=== PATIENT | female | born 2000 | race Caucasian/White ===

== ENCOUNTER 2023-12-08 13:37 | Emergency (ER) | payer OTHER, SELFPAY ==
[2023-12-08 13:37] VITALS: BP 132/91; PULSE 98; RESP 16; TEMP 36.8; O2SAT 99
[2023-12-08 14:24] LABS: Basophils Absolute Auto 0.02 K/mm3 (0.00-0.10); Basophils Percent Auto 0.2 % (0.0-1.0); Eosinophils Absolute Auto 0.02 K/mm3 (0.02-0.50); Eosinophils Percent Auto 0.2 % (1.0-6.0); Hematocrit 41.7 % (35.0-49.0); Hemoglobin 13.8 g/dL (12.0-15.0); Immature Granulocyte Absolute 0.03 K/mm3 (0.00-0.00); Immature Granulocyte Percent A 0.4 % (0.0-0.0); Lymphocytes Absolute Auto 2.22 K/mm3 (1.10-4.50); Lymphocytes Percent Auto 26.2 % (18.0-42.0); Mean Corpuscular HGB Conc 33.1 g/dL (32-36); Mean Corpuscular Hemoglobin 29.3 pg (27.0-31.0); Mean Corpuscular Volume 88.5 fL (78.0-102.0); Mean Platelet Volume 9.1 fl (9.2-11.8); Monocytes Absolute Auto 0.54 K/mm3 (0.10-0.90); Monocytes Percent Auto 6.4 % (2.0-11.0); Neutrophils Absolute Auto 5.64 K/mm3 (1.70-7.20); Neutrophils Percent Auto 66.6 % (50.0-70.0); Platelet Count Result 382 K/mm3 (150-420); Red Blood Count 4.71 M/mm3 (4.20-5.40); Red Cell Distribution Width 13.5 % (11.6-14.4); White Blood Count 8.5 K/mm3 (4.8-10.8)
[2023-12-08 14:36] LABS: Appearance Urine Clear (Clear); Bilirubin Urine Negative (Negative); Blood Urine Negative (Negative); Color Urine Light Yellow (Yellow); Glucose Urine UA Negative (Negative); Ketones Urine Trace (Negative); Leukocyte Esterase Ur Negative LEU/UL (Negative); Nitrate Urine Negative (Negative); Protein Urine Negative (Negative); Specific Grav Ur <= 1.005 (1.010-1.020); Urobilinogen Urine 0.2 mg/dL (0.2-1.0)
[2023-12-08 14:40] LABS: Alanine Aminotransferase 19 U/L (14-59); Albumin Level 3.8 g/dL (3.4-5.0); Alkaline Phosphatase 38 U/L (46-116); Anion Gap 11 mmol/L (4-12); Aspartate Amino Transferase 10 U/L (15-37); Bilirubin,Total 1.2 mg/dL (0.00-1.00); Blood Urea Nitrogen 5 mg/dL (7-18); Calcium 8.6 mg/dL (8.5-10.1); Carbon Dioxide 21 mmol/L (21-32); Chloride 102 mmol/L (98-108); Estimated CRCL calculation 121 ml/min; Estimated Glomerular Filt Rate > 60; Glucose 87 mg/dL (70-99); Osmolality Calculated 274 mOsm/kg (285-295); Potassium 3.7 mmol/L (3.5-5.1); Sodium 134 mmol/L (136-145); Total Protein 7.2 g/dL (6.4-8.2)
[2023-12-08 14:41] LABS: Add Urine Microscopic? YES; RBC Urine None seen /hpf (0-2); Squamous Epithelial Cell Urine Few /hpf (Few); WBC Urine None seen /hpf (0-3)
[2023-12-08 14:42] LABS: Bacteria Urine Trace /hpf
--- NOTE | 2023-12-08 15:04 | ED.FEMALEGU ---
HPI - Female Genitourinary General Chief complaint: Vaginal Bleeding Stated complaint: ; cramping and spotting Time Seen by Provider: 12/08/23 13:39 Source: patient and family Mode of arrival: ambulatory Limitations: no limitations History of Present Illness HPI Narrative: Patient is a 23-year-old female with a 2 home positive. She feels she is somewhere in the 1st trimester. She is having some right lower quadrant cramping as well as some vaginal blood spotting. MD elicited complaint: vaginal bleeding Onset (ago): day(s) (2) Location of symptoms: RLQ Severity: mild Female Urogenital Radiation: Non-Radiating Severity scale (1-10): 1 Quality of pain: cramping Consistency: intermittent and improved Vaginal discharge: none Vaginal bleeding: scant Exacerbating factors: none Relieving factors: none Associated symptoms: denies other symptoms Treatment prior to arrival: none Patient : Yes Possible : at home test positive Related Data Allergies Allergy/AdvReac Type Severity Reaction Status Date / Time No Known Allergies Allergy Verified 01/22/18 18:52 Review of Systems Review of Systems: All systems reviewed & are unremarkable except as noted in HPI and below Constitutional: Constitutional: Reports no additional constitutional complaints Eyes: Eyes: Reports no additional eye complaints ENT: Reports system reviewed and no additional complaints, except as documented Cardiovascular: Cardiovascular: Reports no additional cardiovascular complaints Respiratory: Respiratory: Reports no additional respiratory complaints Gastrointestinal: Gastrointestinal: Reports no additional gastrointestinal complaints Genitourinary: Genitourinary: Reports no additional female genitourinary complaints Musculoskeletal: Musculoskeletal: Reports no additional musculoskeletal complaints Integumentary/Breasts: Skin/Breast: Reports system reviewed and no additional complaints, except as docu Neurologic: Reports system reviewed and no additional complaints, except as documented Psychiatric: Psychiatric: Reports no additional psychiatric complaints Endocrine: Endocrine: Reports no additional endocrine complaints Hematologic/Lymphatic: Hematologic/Lymphatic: Reports no additional hematologic/lymphatic complaints Allergic/Immunologic: Allergic/Immunologic: Reports no additional allergic/immunologic complaints Exam Const: General: healthy appearing Nutritional Appearance: well nourished Orientation/consciousness: patient oriented x3 HENMT: Head: normal to inspection Ears: external ears normal Face/Nose/Sinus: Normal external nose present Eyes: Conjunctivae: conjunctivae normal Pupils: Equal, round and reactive pupils present EOM: EOMs intact bilaterally Neck: Neck: normal visual inspection Chest: Chest palpation & inspection: normal inspection of the chest Resp: Effort & Inspection: normal respiratory effort and not labored Auscultation: clear to auscultation bilaterally Cardio: Rate: regular rate Rhythm: regular rhythm Heart sounds: no murmurs GI: Inspection: non-distended GI Palp: Yes Soft to palpation and No Tenderness to palpation present (GI) Auscultation: normal bowel sounds : General: Yes bladder normal to palpation Back/Spine/Pelvis: Back: no CVA tenderness Skin: General skin exam: normal color Rashes: no rashes Wounds: no wounds Neuro: General: patient oriented x3 Cranial nerves: Yes Nystagmus not present Speech: normal speech Extrem: General: normal to inspection Psych: Appearance: grossly normal Mental Status: mental status grossly normal Affect: normal affect Course Vital Signs Vital signs: Vital Signs Temperature 36.8 C 12/08/23 13:37 Pulse Rate 98 12/08/23 13:37 Respiratory Rate 16 12/08/23 13:37 Blood Pressure 132/91 H 12/08/23 13:37 Pulse Oximetry 99 12/08/23 13:37 Oxygen Delivery Room Air 12/08/23 13:37 Temperature 36.8 C
[2023-12-08 15:10] VITALS: BP 103/67; PULSE 75; RESP 20; O2SAT 97
== END 2023-12-08 15:15 | disposition home or self-care (01) ==
PROVIDERS: Emergency Provider Emergency Medicine
DX: O46.91 Antepartum hemorrhage, unspecified, first trimester (principal); Z3A.00 Weeks of gestation of pregnancy not specified
CPT/HCPCS: 36415; 80053; 81001; 84702; 85025; 99283

== ENCOUNTER 2024-01-02 14:02 | Outpatient (CLI) | payer OTHER, SELFPAY ==
--- NOTE | ~2024-01-02 | US_ITS ---
EXAMINATION: US OB <= 14 weeks fetus DATE: 01/02/2024 14:37 INDICATION: Uncertain gestational dates TECHNIQUE: Real-time transabdominal and transvaginal obstetric ultrasound. FINDINGS: No prior studies for comparison. The uterus measures 11.4 x 5.2 x 9.8 cm. There is an intrauterine gestational sac, with pole id entified. The crown rump length measures 2.2 cm, which correlates with a estimated gestational age o f 9 weeks 0 days. heart tones are identified measuring 169 bpm. The ovaries are within normal limits. Right ovary measures 3.8 x 4 x 3.2 cm. Left ovary measures 5.1 x 5.7 x 2.1 cm. IMPRESSION: 1. SL IUP with an EGA of 9 weeks, 0 days. Reviewed, dictated and finalized at location B.
== END 2024-01-02 14:03 | disposition home or self-care (01) ==
LOC: ANHIMG 14:07
PROVIDERS: Visit Provider Advanced Practice Midwife
DX: Z36.87 Encounter for antenatal screening for uncertain dates (principal); Z3A.00 Weeks of gestation of pregnancy not specified
CPT/HCPCS: 76801

== ENCOUNTER 2024-03-21 09:33 | Outpatient (CLI) | payer OTHER, SELFPAY ==
--- NOTE | ~2024-03-21 | US_ITS ---
EXAMINATION: US OB /maternal detail DATE: 03/21/2024 11:34 INDICATION: anatomic survey. TECHNIQUE: Real-time ultrasound of the pelvis was performed. COMPARISON: Ultrasound 01/02/2024 FINDINGS: There is a single living fetus in breech presentation. The placenta is anterior. heart rate is 139 beats per minute (bpm). The cervical length is 4.6 cm on transabdominal images, which is normal. The amniotic fluid index is 13.8 cm, which is normal. The following biometric data were obtained: Biparietal diameter (BPD): 4.7 cm; head circumference (HC): 18.4 cm; abdominal circumference (AC): 15 .2 cm; femur length (FL): 3.4 cm. These measurements are concordant. Estimated weight is 362 g +/- 54 g, which correlates with the 61st percentile when 08/06/24 is u sed as estimated date of delivery. As single measurements, these parameters are each equal to the following estimated gestational ages: BPD: 20 weeks 2 days. HC: 20 weeks 5 days. AC: 20 weeks 3 days. FL: 20 weeks 5 days. estimated gestational age based solely on measurements from this exam is 20 weeks 4 days +/- 1 weeks 3 days. The cerebral ventricles, cerebellum, cisterna magna, nuchal fold, lip, and spine are normal. The hear t is normal. The diaphragm, stomach, kidneys, and bladder are normal. There are two umbilical arterie s to yield a 3-vessel cord. The cord insertion is normal. IMPRESSION: 1. Single living fetus in breech presentation. 2. Estimated weight is 362 g +/- 54 g, which correlates with the 61st percentile when 08/06/24 is used as estimated date of delivery. 3. Normal anatomic survey. Reviewed, dictated and finalized at location A. IMPRESSION: 1. Single living fetus in breech presentation. 2. Estimated weight is 362 g +/- 54 g, which correlates with the 61st pe rcentile when 08/06/24 is used as estimated date of delivery. 3. Normal anatomic survey.
== END 2024-03-21 09:34 | disposition home or self-care (01) ==
LOC: ANHIMG 09:38
PROVIDERS: Visit Provider Advanced Practice Midwife
DX: Z36.9 Encounter for antenatal screening, unspecified (principal); Z3A.20 20 weeks gestation of pregnancy
CPT/HCPCS: 76805

== ENCOUNTER 2024-06-20 08:21 | Outpatient (CLI) | payer OTHER, SELFPAY ==
[2024-06-20 10:23] LABS: Hematocrit 35.7 % (37.0-47.0); Hemoglobin 12.3 g/dL (12.0-15.0)
[2024-06-20 10:37] LABS: Glucose 1 Hour PP 50gm Dose 111 mg/dL
[2024-06-20 10:57] LABS: Vitamin D 25 Hydroxy 46.1 ng/mL
[2024-06-20 11:15] LABS: HIV 1/2 Ab P24 Ag Result Negative (Negative)
[2024-06-20 15:30] LABS: Rapid Plasma Reagin Non-Reactive (NonReactive)
== END 2024-06-20 08:22 | disposition home or self-care (01) ==
LOC: ANHLAB 08:24
PROVIDERS: Visit Provider Advanced Practice Midwife
DX: Z36.9 Encounter for antenatal screening, unspecified (principal); Z3A.00 Weeks of gestation of pregnancy not specified
CPT/HCPCS: 36415; 82306; 82947; 85014; 85018; 86592; 86703; G0432

== ENCOUNTER 2024-07-26 13:15 | Observation (INO) | payer OTHER, SELFPAY ==
--- OUTSIDE RECORDS SUMMARY | 2024-07-26 13:55 | XMS_ITS | Data Portability ---
Author Organization [employer] , [facility] Address [address] [place] [address] Assessment No assessment recorded. Plan of Treatment Reminders Order Date Submit Date Provider Last Modified By Organization Details Last Modified Time Details Appointments None recorded. Lab test, urine 2023 024 [email or web address] [facility], [address] [place], [address], 13:06:13 Referral None recorded. Procedures None recorded. Surgeries None recorded. Imaging US, transvagina l 2023 024 WAYNE Not available 10:25:31 Medication Orders ondansetron 4 mg disintegrat ing tablet 2023 [id number], [address], [place], [phone], 13:06:16 Patient TargetsNo targets recorded. Patient InstructionsNo instructions recorded. Reason for Referral None Reported. Results Created Date Observation Date Name Description Value Unit Range Abnormal Flag Note LastModifiedBy Organization Detail LastModifiedTime 01/23/2001/23/2024 pregn andrzej test, urine HCG positi ve Not Available [facility] [address] [place], [address], 01/23/2024 12:06:17 01/24/20 24 01/23/2024 US, trans vagin al No observ ation record ed. [email or web address] [facility] [address], [place], [address], 01/24/2024 10:29:36 Result Notes None recorded. Problems Name Problem SNOMED Code Status Onset Date Resolution Date Notes Provider Name and Address Organization Details Recorded Time 20624994 Active 024 Tramea Desi null, [place] [employer] 4 10:06:07 Problem Notes None recorded. Procedures Surgical History Date Name Laterality Status Provider Name and Address Organization Details Recorded Time Date of Last Pap Smear completed [facility] 01/23/2024 12:39:22 procedure on wrist completed [facility] [employer] [facility] 01/23/2024 12:42:02 removal of silastic tubes from ear completed [facility] 01/23/2024 12:42:18 Imaging Results Imaging Date Name Status LastModified by Organization Details LastModified Time 01/23/2024 US, transvaginal completed [email or web address] [address] [address], [place], [address], 01/24/2024 10:29:36 Procedure Notes None recorded. Medical Equipment None Reported. Allergies No known drug allergies Medications Name Sig Start Date Stop Date Status Note LastModified by Organization Details LastModified Time phenazopyri dine 200 mg tablet 01/22 completed Not Available Not Available Not Available metoclopram maik 5 mg tablet TAKE 1 TABLET BY MOUTH EVERY 8 HOURS NEEDED FOR NAUSEA/VO MITING active Not Available Not Available No t Available sertraline 25 mg tablet TAKE 1 TABLET BY MOUTH EVERY DAY active Not Available Not Available No t Available cephalexin 500 mg tablet TAKE 1 TABLET BY MOUTH FOUR TIMES DAILY FOR 5 DAYS 01/22 completed Not Available Not Available Not Available ondansetron 4 mg disintegrat ing tablet DISSOLVE 1 TABLET ON THE TONGUE EVERY 8 HOURS NEEDED active Not Available Not Available No t Available Sprintec (28) 0.25 mg-35 mcg tablet TAKE 1 TABLET BY MOUTH EVERY DAY 01/22 completed Not Available Not Available Not Available cyclobenzap rine 5 mg tablet active Not Available Not Available Not Available M- Plus 27 mg iron-1 mg tablet TAKE 1 TABLET BY MOUTH EVERY DAY active Not Available Not Available No t Available Vitals Date Recorded Body height Body mass index (BMI) Body weight Body temperature Systolic blood pressure Diastolic blood pressure Provider Name and Address Organization Details Last Updated DateTime 167.64 cm 25.8 kg/m2 04696.0 6 g 97.4 [degF] 124 mm[Hg] 72 mm[Hg] Angela Vasquez [employer] 12:05:39 Social History Question Answer Notes LastModified by [employer] Details LastModified Time Tobacco Smoking Status Never Smoker Angela Vasquez madhuri [employer] 01/23/2024 12:41:49 What Is Your Level Of Alcohol Consumption? None Information not available 01/23/2024 If You Are , What Was Your Level Of Alcohol Consumption Prior To ? None Information not available 01/23/2024 Are You Blind Or Do You Have Difficulty Seeing? No Information not available 01/23/2024 Are You Deaf Or Do You Have Serious Difficulty Hearing? No Information not available 01/23/2024 What Type Of Diet Are You Following? REGULAR Information not available 01/23/2024 What Is Your Relationship Status? Other Engaged Information not available 01/23/2024 Are You Sexually Active? Yes Information not available 01/23/2024 Do You Use Any Illicit Or Recreational Drugs? No Information not available 01/23/2024 Do You Or Have You Ever Used Any Other Forms Of Tobacco Or Nicotine? Yes Information not available 01/23/2024 Sex: Unknown Functional Status Question Answer Note LastModified by [employer] Details LastModified Time What is your exercise level? Occasional Information not available 01/23/2024 Mental Status None recorded. Family History Nothing Reported. Medical History No medical history recorded. Gynecological History Statement/Question Response Date of Last Colonoscopy Flow Moderate Date of LMP 10/31/2023 Most Recent Bone Density Date of Last Pap Smear 01/03/2024 Duration of Flow (days) Most Recent Mammogram Current Control Method Age at Menarche 14 Obstetrics History GPAL:G 2 P 0 0 0 0 Type Value Multiple Births 0 Full Term 0 Induced 0 Spontaneous 0 Premature 0 Living 0 Ectopics 0 Total 2 Past Encounters Encounter ID Performer Location Encounter Start Date Encounter Closed Date Diagnosis/Indication Diagnosis SNOMED-CT Code Diagnosis ICD10 Code Diagnosis Note [id number] [facility]IO [facility] [address] [place] [address] 01/23/2024 11:54:32 01/23/2024 13:17:43 Missed period 87109714 N92.6 Pt presents today for a confirmati on of visit. has been previously confirmed at another healthcare facility. Pt voiced that she is happy about this . - will have pt sign a record release to obtain records from Dr. Marcelino. TVUS today showed:IUP with Cardiac Activity. HARDEEP consistent with LMP. LMP: 10/31/23EDD : 08/06/24Ges tational Age: 12w 0dFHT: 155 bpm First trimester teaching provided.- --Foods and activities to avoid---We ight gain recommenda tions based on BMI---Safe meds---Angel entation to practice-- -Delivery locations- --CHARLES visit progressio n---Prenat al vitamins daily---To xoplasmosi s precaution s reviewed-- -[facility] Guide; What to expect on your maternity journey -- -S/S of SAB reviewed and when to seek care--BMI: 25.8 --Medicati ons Reviewed: PNV, sertaline, RTC 1 - - week for 1st OB, Labs, and Physical. Nausea and vomiting in 8844243106 O21.9 saying that the reglan isn't helping her and would like to try zofran. Health Concerns Section Related Observation LastModified by Organization Detai ls LastModified Time None Recorded Concern Status LastModified by Organization Details LastModified Time None Recorded Advance Directives Directive None Recorded Payers Encounter Date Sequence Insurance Name Policy Number Policy [place] Covered Member ID Lake Member ID Guarantor Name 01/23/[address] [facility] - DOS ON OR AFTER 20 (MEDICAID REPLACEMENT - HMO) Milly Francis [id number] Milly Francis Notes Date Note Type Note Provider Name and Address Organization Details Recorded Time 01/23/2024 text/html Confirmation VisitReported bypatient.obstetric s and gynecologyLMP: (10/31/2023); date positive test: (01/23/2024); flow is moderate; EDC (LMP): (08/06/24) BONIFACIO SABILLON NP [address] [place], [address], [facility] 01/23/2024 13:09:02 OBGyn Episode Ob Episode Information Episode Created Date Number of Fetuses Patient Bloodtype Patient rh Status Prepregnancy Weight lbs Domestic Partner Domestic Partner Phone Father 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 01/29/20 24 1 OPEN Fetus Data First Name Last Name Admitted to NICU Weight (g) Sex Living Outcome Pediatric Complications Fetus ID Race Codes Race Delivery Type [id number] Hardeep Calculation Initial Hardeep Date Initial Exam Date Initial Exam Provider Initial Ultrasound Date Last Menstrual Period Date Ultra Sound Weeks Gestation 01/29/2024 10/31/2023 0 Eighteen To Twenty Week Hardeep Update Ultra Sound Date Fundal Height At Umbil Quickening Date Ultra Sound Latest Weeks Gestation Final Hardeep Confirmed By Final Hardeep Confirmed Date Final Hardeep Date Ultra Sound Latest Days Gestation 0 08/06/19 25 0 Menstrual History Last Menstrual Date Menses Monthly On Bcp Conception Prior Menses Frequency Hcg Plus Date Menarche Onset Age 0510/31/2023 true false 12 Delivery Information Delivery Date Delivery Type Labor Anesthesia Weeks Gestation Incision Type Labor Labor Length Hrs Delivered By Post Complications Tubal Sterilization Discharge Date Comments Discharge Information Feeding Method Contraceptive Method Maternal HG B and HCT Levels
[2024-07-26 14:00] VITALS: BP 95/58; PULSE 79
[2024-07-26 14:06] VITALS: BMI 30.9
--- NOTE | 2024-07-26 14:07 | OBADM ---
This patient, Milly Francis, admitted to the OB room Labor/Delivery/Recovery 105 for observation. Patient/family oriented to hospital policies and general routines including ID bracelet, bed and alarms, visiting hours, pain management, procedures, bathroom and other care routines, personal items, smoking policy, room service/diet, and visiting hours. Patient/Family are encouraged to report perceived risks to care and to ask questions if they do not understand what they are told or what they should do.
[2024-07-26 14:15] VITALS: BP 120/75; PULSE 70
[2024-07-26 14:20] LABS: Add Urine Microscopic? YES; Appearance Urine Turbid (Clear); Bacteria Urine 4+ /hpf; Bilirubin Urine Negative (Negative); Blood Urine Negative (Negative); Color Urine Yellow (Yellow); Glucose Urine UA Negative (Negative); Ketones Urine 1+ mg/dL (Negative); Leukocyte Esterase Ur 3+ LEU/UL (Negative); Need Manual Microscopic Reviewed; Nitrate Urine Negative (Negative); Protein Urine Trace mg/dL (Negative); RBC Urine 0-2 /hpf (0-2); Specific Grav Ur 1.018 (1.001-1.035); Squamous Epithelial Cell Urine Many /hpf (Few); WBC Urine 21-50 /hpf (0-3); pH Urine 6.5 (5.0-9.0)
[2024-07-26 14:30] VITALS: BP 112/74; PULSE 82
--- NOTE | 2024-07-26 14:49 | PC.NURSE ---
Dr. Marcelino notifed of patient's arrival on unit with complaints of abd and back pain. SVE /-2 and negative ROM plus. Reported on urinalysis and FHT, okay to discharge.
--- NOTE | 2024-07-29 09:18 | P.PNOB_ITS ---
OB - Triage/Final Diagnosis Visit Information Reason for evaluation: threatened labor Comments/Additional reasons for admission: I have assessed the risk for this patient, Milly Francis, and determined that she would benefit from observation care. Evaluation Laboratory results: Laboratory Tests 07/26/24 14:01 Urine Color Yellow Urine Appearance Turbid H Urine pH 6.5 Ur Specific [place] 1.018 Urine Protein Trace Urine Glucose (UA) Negative Urine Ketones 1+ H Ur Blood (Man) Negative Urine Nitrate Negative Urine Bilirubin Negative Urine Urobilinogen 1.0 Add Ur Microanalysis Reviewed Leukocyte Esterase Rfl 3+ H Urine RBC 0-2 Urine WBC 21-50 H Ur Squamous Epith Cells Many H Urine Bacteria 4+ H Urine Casts 3-5
== END 2024-07-26 14:45 | disposition home or self-care (01) ==
PROVIDERS: Admitting Provider Obstetrics & Gynecology Gynecology; Visit Provider Obstetrics & Gynecology Gynecology
DX: O47.1 False labor at or after 37 completed weeks of gestation (principal); Z3A.38 38 weeks gestation of pregnancy
CPT/HCPCS: 81001; 84112; G0378; G0379

== ENCOUNTER 2024-08-01 06:28 | Inpatient (IN) | payer OTHER, SELFPAY ==
[2024-08-01] VITALS (217 sets, daily range): BP systolic 103–203; BP diastolic 57–163; PULSE 27–200; RESP 16–18; TEMP 36.6–37.6; O2SAT 87–100; BMI 30.6
--- OUTSIDE RECORDS SUMMARY | 2024-08-01 06:35 | XMS_ITS | Data Portability ---
Author Organization [employer] , [facility] Address [address] [place] [address] Assessment No assessment recorded. Plan of Treatment Reminders Order Date Submit Date Provider Last Modified By Organization Details Last Modified Time Details Appointments None recorded. Lab test, urine 2023 024 [email or web address] [facility], [address] [place], [address], 13:06:13 Referral None recorded. Procedures None recorded. Surgeries None recorded. Imaging US, transvagina l 2023 024 WAYNE Not available 10:25:31 Medication Orders ondansetron 4 mg disintegrat ing tablet 2023 [id number], [address], [place], [phone], 13:06:16 Patient TargetsNo targets recorded. Patient InstructionsNo instructions recorded. Reason for Referral None Reported. Results Created Date Observation Date Name Description Value Unit Range Abnormal Flag Note LastModifiedBy Organization Detail LastModifiedTime 01/23/2001/23/2024 pregn andrzej test, urine HCG positi ve Not Available [facility] [address] [place], [address], 01/23/2024 12:06:17 01/24/20 24 01/23/2024 US, trans vagin al No observ ation record ed. [email or web address] [facility] [address], [place], [address], 01/24/2024 10:29:36 Result Notes None recorded. Problems Name Problem SNOMED Code Status Onset Date Resolution Date Notes Provider Name and Address Organization Details Recorded Time 85733841 Active 024 Tramea Desi null, [place] [employer] 4 10:06:07 Problem Notes None recorded. Procedures Surgical History Date Name Laterality Status Provider Name and Address Organization Details Recorded Time Date of Last Pap Smear completed [facility] [employer] 01/23/2024 12:39:22 procedure on wrist completed [facility] [employer] [facility] 01/23/2024 12:42:02 removal of silastic tubes from ear completed [facility] [employer] 01/23/2024 12:42:18 Imaging Results Imaging Date Name Status LastModified by Organization Details LastModified Time 01/23/2024 US, transvaginal completed [email or web address] [address] [address], [place], [address], 01/24/2024 10:29:36 Procedure Notes None recorded. Medical [...] Last Updated DateTime 167.64 cm 25.8 kg/m2 24752.0 6 g 97.4 [degF] 124 mm[Hg] 72 mm[Hg] Angela Vasquez [employer] 12:05:39 Social History Question Answer Notes LastModified by Trellise Details LastModified Time Tobacco Smoking Status Never Smoker Angela Vasquez madhuri [employer] [facility] [employer] 01/23/2024 12:41:49 What Is Your Level Of [...] Functional Status Question Answer Note LastModified by [employer] Details LastModified Time What is your [...] SNOMED-CT Code Diagnosis ICD10 Code Diagnosis Note [id number] BONIFACIO [facility]ACKENZIE [facility] [address] [place] [address] 01/23/2024 11:54:32 01/23/2024 13:17:43 Missed period 10333171 N92.6 Pt presents today for a confirmati [...] vitamins daily---To xoplasmosi s precaution s reviewed-- -[facility] Guide; What to expect on your maternity journey -- -S/S of SAB reviewed and when to seek care--BMI: 25.8 --Medicati ons Reviewed: PNV, sertaline, RTC 1 - - week for 1st OB, Labs, and Physical. Nausea and vomiting in 0894217179 O21.9 saying that the reglan isn't helping her and would like to try zofran. Health Concerns Section Related Observation LastModified by Organization Detai ls LastModified Time None Recorded Concern Status LastModified by Organization Details LastModified Time None Recorded Advance Directives Directive None Recorded Payers Encounter Date Sequence Insurance Name Policy Number Policy [place] Covered Member ID [place] Member ID Guarantor Name 01/23/2024 1 [facility] - DOS ON OR AFTER 20 (MEDICAID REPLACEMENT - HMO) Milly Francis [id number] Milly Francis Notes Date Note Type Note Provider Name and Address Organization Details Recorded Time 01/23/2024 text/html Confirmation VisitReported bypatient.obstetric s and gynecologyLMP: (10/31/2023); date positive test: (01/23/2024); flow is moderate; EDC (LMP): (08/06/24) BONIFACIO SABILLON NP [address] [place], [address], [facility] 01/23/2024 13:09:02 OBGyn Episode Ob Episode Information Episode Created Date Number of Fetuses Patient Bloodtype Patient rh Status Prepregnancy Weight lbs Domestic Partner Domestic Partner Phone Father Name [employer] 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
--- NOTE | 2024-08-01 07:44 | WPDOBADMIT ---
Obstetrics - Admit Note Admission Note: record reviewed. No pertinent additions to the history and/or any subsequent changes in the physical findings that are not consistent with the expected course of the were found. Additions to the history and/or subsequent changes in the physical findings follow. Here for MIL but is put on hold due to staffing issues. Will begin Pitocin once staffing ratios ok. T cat I
--- NOTE | 2024-08-01 10:59 | LDADM ---
This patient, Milly Francis, was admitted to Labor/Delivery/Recovery 106 on 08/01/24 at 06:28. Plans for labor, pain management and were discussed with patient. Patient/family oriented to hospital policies and general routines including ID bracelet, bed and alarms, visiting hours, pain management, procedures, bathroom and other care routines, personal items, smoking policy, room service/diet and guest tray routines, security routines, and visiting hours. Patient/Family are encouraged to report perceived risks to care and to ask questions if they do not understand what they are told or what they should do. See [facility] for further documentation.
[2024-08-01] MEDS: OXYTOCIN 30 UNITS/NS 500 ML 30 UNITS/500 ML BAG 6 UNITS IV CONT (11:18)
[2024-08-01] MEDS: LACTATED RINGERS 1,000 ML 125 ML IV CONT ×3 (11:18→17:17)
[2024-08-01 11:44] LABS: Basophils Percent Auto 0.2 % (0.2-1.2); Eosinophils Absolute Auto 0.1 K/mm3 (0-0.3); Eosinophils Percent Auto 0.7 % (0-4.4); Hematocrit 34.8 % (37.0-47.0); Immature Granulocyte Absolute 0.05 K/mm3 (0.00-0.031); Immature Granulocyte Percent A 0.5 % (0-0.5); Lymphocytes Absolute Auto 2.55 K/mm3 (0.9-3.2); Lymphocytes Percent Auto 26.6 % (18.3-44.2); Mean Corpuscular HGB Conc 34.5 g/dl (32-36); Mean Corpuscular Hemoglobin 31.3 pg (26-34); Mean Corpuscular Volume 90.6 fl (80-100); Mean Platelet Volume 9.8 fl (7.4-10.4); Monocytes Absolute Auto 0.5 K/mm3 (0.1-0.6); Monocytes Percent Auto 4.7 % (2.6-8.5); Neutrophils Absolute Auto 6.4 K/mm3 (1.3-6.7); Neutrophils Percent Auto 67.3 % (45.5-73.1); Platelet Count Result 309 k/mm3 (150-375); Red Blood Count 3.84 M/mm3 (4.2-5.4); Red Cell Distribution Width 13.5 % (11.5-14.5); White Blood Count 9.6 K/mm3 (4.5-10.0)
[2024-08-01 12:42] LABS: HIV 1/2 Ab P24 Ag Result Negative (Negative)
[2024-08-01 12:48] LABS: Syphilis IgG/IgM Antibody Negative (Negative)
--- NOTE | 2024-08-01 14:16 | WPDANESEPPF ---
Anes - Initial Pre Proc Eval Procedure: labor epidural Date/Time: 08/01/24 14:16 Surgeon: Sandra Marcelino MD Pre Op Diagnosis: labor pain Pre Op Diagnosis: Induction of Labor Patient Data Age: 23 Gender: F Height: 1.68 m Weight: 86 kg Last Vital Signs Temp 36.6 C 08/01/24 11:59 Pulse 77 08/01/24 14:15 Resp 16 08/01/24 11:59 BP 125/69 08/01/24 14:15 Pulse Ox 96 08/01/24 14:12 O2 Del Method Room Air 08/01/24 10:59 Allergies Allergy/AdvReac Type Severity Reaction Status Date / Time No Known Allergies Allergy Verified 08/01/24 10:56 Home Medications ?Medication ?Instructions ?Recorded ?Confirmed ?Type vitamin with calcium 1 tablet PO DAILY 07/29/24 08/01/24 History no.72-iron 27 mg-folic acid 1 mg tablet (WesTab Plus) sertraline 25 mg tablet 25 mg PO DAILY 07/29/24 08/01/24 History Laboratory Tests 08/01/24 11:23 WBC 9.6 K/mm3 (4.5-10.0) RBC 3.84 L M/mm3 (4.2-5.4) Hgb 12.0 g/dL (12.0-15.0) Hct 34.8 L % (37.0-47.0) MCV 90.6 fl (80-100) MCH 31.3 pg (26-34) MCHC 34.5 g/dl (32-36) RDW 13.5 % (11.5-14.5) Plt Count 309 k/mm3 (150-375) MPV 9.8 fl (7.4-10.4) Immature Gran % (Auto) 0.5 % (0-0.5) Neut % (Auto) 67.3 % (45.5-73.1) Lymph % (Auto) 26.6 % (18.3-44.2) [place] % (Auto) 4.7 % (2.6-8.5) Eos % (Auto) 0.7 % (0-4.4) Baso % (Auto) 0.2 % (0.2-1.2) Lymph # (Auto) 2.55 K/mm3 (0.9-3.2) [place] # (Auto) 0.5 K/mm3 (0.1-0.6) Eos # (Auto) 0.1 K/mm3 (0-0.3) Baso # (Auto) 0.0 K/mm3 (0.0-0.1) Abs Immat Gran (auto) 0.05 H K/mm3 (0.00-0.031) Absolute Neuts (auto) 6.4 K/mm3 (1.3-6.7) Absolute Nucleated RBC 0.000 K/mm3 (0.0-0.012) Nucleated RBC % 0.0 % (0.0-0.2) Syphilis IgG/IgM Ab Negative (Negative) RPR Titer Cancelled RPR Cancelled RPR Titer Add Testing Cancelled T.pallidum Ab (FTA-ABS) Cancelled T.pall Ab(FTA-ABS)Reflex Cancelled HIV 1&2 Ab/P24 Ag 4thGn Negative (Negative) Blood Type A Negative Antibody Screen Negative Patient hx anesthesia problems: none Family hx anesthesia problems: none Results Review: All pre-operative results and documents have been reviewed as part of the pre-operative evaluation. [facility] Family History Family History (Updated 08/01/24 @ 11:40 by Mary Escobedo RN) Other No pertinent family history in first degree relatives Social History Social History Smoking status: Never smoker Second hand tobacco smoke exposure: No Substance use: never Do You Feel Safe in your Home?: Yes Lack of Transportation: No Lack of Food: Never True Current Housing: I Have Housing Concerned About Future Housing: No Difficulty Paying Gas/Electric Bills: No Difficulty Paying for Meds: No Currently Unemployed: YES Education: Grade School Difficulty w/ Childcare or Family Care: No Spiritual care concerns: No Anes - Eval Final PreProcedure Day of Procedure 08/01/24 14:16 Patient weight: obese ASA classification: II Anesthetic plan: proceed Anesthesia type and monitoring: regional epidural and standard monitoring Results Review: All pre-operative results and documents have been reviewed as part of the pre-operative evaluation. Informed Consent: The patient's anesthetic plan and its attendant risks and benefits were discussed with the patient/family/POA. Questions were solicited and answers provided to the satisfaction of the patient/family/POA.
--- NOTE | 2024-08-01 16:42 | PM.OBPNLAB ---
Pain Control Date/time seen: 08/01/24 16:42 Pain control: tolerating well and epidural Pelvic Exam Dilation (cm): 5 Effacement (%): 50 station: -2 Amniotic membrane status: Ruptured (meconium fluid) Status status: Category l Assessment and Plan Assessment: induction ongoing Plan: continuous present management
[2024-08-01] MEDS: ONDANSETRON INJ 4 MG/2 ML VIAL IV PUSH (19:34)
--- NOTE | 2024-08-01 22:00 | PM.OBPRVD ---
OB - Vaginal Delivery Note Procedure Delivery date: 08/01/24 Events: Other (39 week MIL) Induction method: AROM and Per Pitocin Protocol Delivery monitor: External FHT and External Uterine Route of delivery: Episiotomy description: None Laceration Description: Periurethral and Perineal - 1st Degree Delivery repair: vicryl (3-0) Specimen: No Quantitative Blood Loss (ml): 600 Anesthesia type: Epidural Disposition: Floor Complications: No immediate complications Baby Date of : 08/01/24 Gestational Age by Date: 39 gender: Female Weight (pounds): 7 Weight (ounces): 12 presentation: vertex position: Right Occiput Anterior Placenta delivery description: Spontaneous Cord Vessel Description: 3 Vessels and Delayed Cord Clamping score one minute: 7 score five minutes: 9 Narrative: RN did not start Pitocin when I asked. Started at about 5 min pp.
--- NOTE | 2024-08-01 22:02 | P.DS_ITS ---
DS: Admitting Diagnosis Discharge Date 08/03/2024 <Frank Wilson MD - Last Filed: 08/03/24 06:40> Admitting Diagnosis IUP 39 wks MIL <Sandra Marcelino MD - Last Filed: 08/05/24 07:27> DS: Discharge Diagnosis Discharge Diagnosis (1) (normal spontaneous vaginal delivery): Code(s): O80 - Encounter for full-term uncomplicated delivery <Sandra Marcelino MD - Last Filed: 08/05/24 07:27> Status: Acute <Sandra Marcelino MD - Last Filed: 08/05/24 07:27> OB - DS: Summary OB Procedures : Ultrasound <Sandra Marcelino MD - Last Filed: 08/05/24 07:27> OB Procedures Intrapartum: Spontaneous Vag Delivery <Sandra Marcelino MD - Last Filed: 08/05/24 07:27> OB Procedures: : None <Sandra Marcelino MD - Last Filed: 08/05/24 07:27> Peripartum Data Delivery Method: Natural Vaginal <Sandra Marcelino MD - Last Filed: 08/05/24 07:27> Laceration Description: Periurethral and Perineal - 1st Degree <Sandra Marcelino MD - Last Filed: 08/05/24 07:27> Episiotomy description: None <Sandra Marcelino MD - Last Filed: 08/05/24 07:27> complications: none <Sandra Marcelino MD - Last Filed: 08/05/24 07:27> Status at Discharge Functional status at discharge: independent ambulation <Sandra Marcelino MD - Last Filed: 08/05/24 07:27> Overall status at discharge: patient is progressing back to baseline <Sandra Marcelino MD - Last Filed: 08/05/24 07:27> Time Spent with Patient Time attestation: Total time spent providing and/or coordinating discharge services: <Sandra Marcelino MD - Last Filed: 08/05/24 07:27> DS: Data Data Completed and Pending Labs on day of discharge: Labs from last 24 hours 08/01/24 11:23 WBC 9.6 RBC 3.84 L Hgb 12.0 Hct 34.8 L MCV 90.6 MCH 31.3 MCHC 34.5 RDW 13.5 Plt Count 309 MPV 9.8 Immature Gran % (Auto) 0.5 Neut % (Auto) 67.3 Lymph % (Auto) 26.6 [place] % (Auto) 4.7 Eos % (Auto) 0.7 Baso % (Auto) 0.2 Lymph # (Auto) 2.55 [place] # (Auto) 0.5 Eos # (Auto) 0.1 Baso # (Auto) 0.0 Abs Immat Gran (auto) 0.05 H Absolute Neuts (auto) 6.4 Absolute Nucleated RBC 0.000 Nucleated RBC % 0.0 Syphilis IgG/IgM Ab Negative RPR Titer Cancelled RPR Cancelled RPR Titer Add Testing Cancelled T.pallidum Ab (FTA-ABS) Cancelled T.pall Ab(FTA-ABS)Reflex Cancelled HIV 1&2 Ab/P24 Ag 4thGn Negative Blood Type A Negative Antibody Screen Negative <Sandra Marcelino MD - Last Filed: 08/05/24 07:27> Discharge Plan Discharge Attending physician on discharge: Sandra Marcelino <Sandra Marcelino MD - Last Filed: 08/05/24 07:27> Sandra Marcelino <Frank Wilson MD - Last Filed: 08/03/24 06:40> Discharging Clinician: Frank Luis <Sandra Marcelino MD - Last Filed: 08/05/24 07:27> Frank Luis <Frank Wilson MD - Last Filed: 08/03/24 06:40> Anticipated Discharge Date/Time: 08/03/24 08:02 <Sandra Marcelino MD - Last Filed: 08/05/24 07:27> Patient Disposition: Home, Self-Care <Sandra Marcelino MD - Last Filed: 08/05/24 07:27> Activity: may shower and pelvic rest <Sandra Marcelino MD - Last Filed: 08/05/24 07:27> may shower and pelvic rest <Frank Wilson MD - Last Filed: 08/03/24 06:40> Diet: regular <Sandra Marcelino MD - Last Filed: 08/05/24 07:27> regular <Frank Wilson MD - Last Filed: 08/03/24 06:40> Discharge Instructions: Education: Mom and Baby Guide Given to: Mother Follow-Up: Call your delivering provider's office for an appointment to be seen in: 6 Weeks Mom and baby should come to the [facility] for the follow-up appointment. Appointment Date/Time: August 05, 2024 at 11:00 am What to expect at your follow-up visit: Blood Pressure Check Physical Assessment Call [phone] if you are unable to keep your appointment time. BREAST CARE: * Wear a snug supportive bra. * For engorgement discomfort: Bottle Feeding: * May apply ice packs EPISIOTOMY/PERINEAL CARE: * Until bleeding stops, use your aaron bottle after urinating * Change your pad frequently throughout the day * You may take sitz baths several times a day (fill your bathtub with warm water and soak for 20 minutes.) Do NOT bathe in the water * No tub baths until seen by your physician - You may shower ACTIVITY: * Rest as much as possible. * Do not exercise or lift anything heavier than your baby (such as laundry or other children.) * Avoid stairs or driving as much as possible. * Do not put anything into the vagina. No douching, tampons, or sexual activity until seen by physician. NOTIFY PHYSICIAN IF YOU HAVE ANY QUESTIONS OR IF ANY OF THE FOLLOWING SYMPTOMS OCCUR: * If your episiotomy or incision becomes red, swollen, or more painful than what you have experienced in the hospital. * If your vaginal bleeding becomes foul smelling. * If your vaginal bleeding becomes more heavy than a period or if your bleeding changes from pink to bright red. However, you may pass an occasional walnut- sized clot once or twice for the first week . * If you experience a sharp, shooting pain in you calves. * If you discover a hard, reddened area on your breast or if you experience flu- like symptoms. DIET: * Eat regular, well-balanced meals. * Drink plenty of fluids daily. If , drink to thirst. <Sandra Marcelino MD - Last Filed: 08/05/24 07:27> Patient Instructions: Antibiotic Form <Sandra Marcelino MD - Last Filed: 08/05/24 07:27> Patient Language: Italian <Sandra Marcelino MD - Last Filed: 08/05/24 07:27> Stand Alone Forms: General Discharge Information <Sandra Marcelino MD - Last Filed: 08/05/24 07:27> Follow-up/Referrals: Sandra Marcelino MD [Physician] - 6 Weeks <Sandra Marcelino MD - Last Filed: 08/05/24 07:27> Discharge Medications: Continued sertraline 25 mg tablet 25 mg PO DAILY WesTab Plus 27 mg iron- 1 mg tablet 1 tablet PO DAILY <Sandra Marcelino MD - Last Filed: 08/05/24 07:27> Date of admission: 08/01/24 06:28 <Sandra Marcelino MD - Last Filed: 08/05/24 07:27> Primary Care Provider: UNKNOWN,DOCTOR <Sandra Marcelino MD - Last Filed: 08/05/24 07:27> Admitting Provider: Sandra Marcelino <Sandra Marcelino MD - Last Filed: 08/05/24 07:27> Attending physician on admission: Sandra Marcelino <Sandra Marcelino MD - Last Filed: 08/05/24 07:27> Condition: Stable <Sandra Marcelino MD - Last Filed: 08/05/24 07:27> Health Concerns: Plans DepoProvera for control. First dose given 08/03. <Sandra Marcelino MD - Last Filed: 08/05/24 07:27>
[2024-08-01] MEDS: OXYTOCIN 30 UNITS/NS 500 ML 30 UNITS/500 ML BAG 125 UNITS IV CONT (22:22)
[2024-08-02] MEDS: BENZOCAINE 20% AER SPR (*SP) 56 GM CAN 1 SPRAY TOPICAL
[2024-08-02] MEDS: WITCH HAZEL 40 PADS 1 PAD TOPICAL
[2024-08-02 00:47] VITALS: BP 120/78; PULSE 79; RESP 16; TEMP 37.3; O2SAT 100
[2024-08-02] MEDS: IBUPROFEN 600 MG TABLET PO ×4 (00:58→23:05)
[2024-08-02 04:00] VITALS: BP 108/71; PULSE 72; RESP 16; TEMP 36.6; O2SAT 99
[2024-08-02 06:36] LABS: Hematocrit 31.4 % (37.0-47.0); Hemoglobin 10.7 g/dL (12.0-15.0)
[2024-08-02 07:45] VITALS: BP 112/72; PULSE 68; RESP 18; TEMP 36.6; O2SAT 98
[2024-08-02 08:00] VITALS: PULSE 68; RESP 18; O2SAT 98
--- NOTE | 2024-08-02 08:27 | PC.NURSE ---
Introductions were made, then consulted with patient to assess needs related to . Mother led the conversation with her?plans to feed?her and the?experience so far. Mother states that she would like to bottle feed at this time. Discussed pumping if she desires to give breast milk and the importance of early intervention to protect her milk supply. Mother denies wanting to pump or place baby to breast at this time. Reported to the Primary RN.
[2024-08-02] MEDS: DOCUSATE SODIUM 100 MG CAPSULE PO (09:04)
[2024-08-02] MEDS: SERTRALINE HCL 25 MG TABLET PO (09:04)
[2024-08-02] MEDS: MULTIVIT/MIN/PREN/FOL AC/IRON TABLET 1 TAB PO (09:04)
--- NOTE | 2024-08-02 10:09 | PM.OBPNVD ---
OB - PN: Subj Subjective Date/time seen: 08/02/24 10:09 Interval history: Unable to urinate. Straight catheter x 1. Still unable to urinate. Patient comments: pain well controlled Reading baby status: doing well OB - PN: Obj Data Labs 08/02/24 05:08 Labs: Laboratory Results - last 24 hr 08/01/24 08/02/24 11:23 05:08 WBC 9.6 RBC 3.84 L Hgb 12.0 10.7 L Hct 34.8 L 31.4 L MCV 90.6 MCH 31.3 MCHC 34.5 RDW 13.5 Plt Count 309 MPV 9.8 Immature Gran % (Auto) 0.5 Neut % (Auto) 67.3 Lymph % (Auto) 26.6 [place] % (Auto) 4.7 Eos % (Auto) 0.7 Baso % (Auto) 0.2 Lymph # (Auto) 2.55 [place] # (Auto) 0.5 Eos # (Auto) 0.1 Baso # (Auto) 0.0 Abs Immat Gran (auto) 0.05 H Absolute Neuts (auto) 6.4 Absolute Nucleated RBC 0.000 Nucleated RBC % 0.0 Syphilis IgG/IgM Ab Negative RPR Titer Cancelled RPR Cancelled RPR Titer Add Testing Cancelled T.pallidum Ab (FTA-ABS) Cancelled T.pall Ab(FTA-ABS)Reflex Cancelled HIV 1&2 Ab/P24 Ag 4thGn Negative Blood Type A Negative Antibody Screen Negative OB - PN A/P Plan day: 1 Plan: routine care and other (If unable to urinate, place catheter overnight. ) Time Spent With Patient Time: Total time spent is greater than 50% in coordination of care (as documented) at patient's floor/unit and/or counseling patient: Exam : Bimanual exam- vagina & uterus: other (Uterus firm, nt @U per RN)
--- NOTE | 2024-08-02 10:49 | WPDANLDPN2 ---
Anes-Prog Note L&D Date/Time: 08/02/24 10:49 Comfortable throughout: labor and delivery Neuraxial method: epidural Epidural/Spinal procedure site: clean & non-tender Neuro status: Neuro function grossly intact. Cardiovascular status: normal Respiratory status: normal Airway patency: baseline Mental status: baseline Post-Op hydration status: normal Vital Signs: Last Vital Signs Temp 36.6 C 08/02/24 07:45 Pulse 68 08/02/24 08:00 Resp 18 08/02/24 08:00 BP 112/72 08/02/24 07:45 Pulse Ox 98 08/02/24 08:00 O2 Del Method Room Air 08/02/24 08:00 Pain score (VAS): 06/21 I/O: Intake & Output 08/01/24 08/02/24 08/02/24 23:59 07:59 15:59 Intake Total 1500 300 Output Total 700 650 100 Balance 800 -650 200 Post-procedural complaints: none Patient feedback: Patient satisfied with anesthetic care.
[2024-08-02 11:50] VITALS: BP 114/72; PULSE 64; RESP 16; TEMP 36.3; O2SAT 98
[2024-08-02 20:00] VITALS: BP 115/80; PULSE 80; RESP 14; TEMP 36.8; O2SAT 100
--- NOTE | 2024-08-03 06:40 | P.PNOB_ITS ---
OB - PN: Subj Subjective Date/time seen: 08/03/24 06:40 Interval history: Unable to urinate. Straight catheter x 1. Still unable to urinate. Patient comments: no complaints, pain well controlled and tolerating diet Van baby status: doing well OB - PN: Obj Data Labs 08/02/24 05:08 Labs: Laboratory Results - last 24 hr 08/02/24 05:08 Hgb 10.7 L Hct 31.4 L OB - PN A/P Assessment and Plan (1) (normal spontaneous vaginal delivery): Code(s): O80 - Encounter for full-term uncomplicated delivery Status: Acute Plan Comments: Home follow-up with Dr. Vincent in 5-6 weeks Time Spent With Patient Time: Total time spent is greater than 50% in coordination of care (as documented) at patient's floor/unit and/or counseling patient: Review of Systems 2 Review of Systems: All systems reviewed & are unremarkable except as noted in HPI and below Constitutional: Constitutional: Reports no additional constitutional complaints Eyes: Eyes: Reports no additional eye complaints ENT: Reports system reviewed and no additional complaints, except as documented Cardiovascular: Cardiovascular: Reports no additional cardiovascular complaints Respiratory: Respiratory: Reports no additional respiratory complaints Gastrointestinal: Gastrointestinal: Reports no additional gastrointestinal complaints Genitourinary: Genitourinary: Reports no additional female genitourinary complaints Musculoskeletal: Musculoskeletal: Reports no additional musculoskeletal complaints Integumentary/Breasts: Skin/Breast: Reports system reviewed and no additional complaints, except as docu Neurologic: Reports system reviewed and no additional complaints, except as documented Psychiatric: Psychiatric: Reports no additional psychiatric complaints Endocrine: Endocrine: Reports no additional endocrine complaints Hematologic/Lymphatic: Hematologic/Lymphatic: Reports no additional hematologic/lymphatic complaints Allergic/Immunologic: Allergic/Immunologic: Reports no additional allergic/immunologic complaints Exam 2 Const: General: cooperative, healthy appearing and comfortable O rientation/consciousness: oriented to person, oriented to place and oriented to time GI: Inspection: normal to inspection (Fundus firm below the umbilicus)
[2024-08-03 07:19] VITALS: BP 112/76; PULSE 73; RESP 18; TEMP 36.5; O2SAT 100
[2024-08-03] MEDS: IBUPROFEN 600 MG TABLET PO (09:22)
[2024-08-03] MEDS: DOCUSATE SODIUM 100 MG CAPSULE PO (09:23)
[2024-08-03] MEDS: MULTIVIT/MIN/PREN/FOL AC/IRON TABLET 1 TAB PO (09:23)
[2024-08-03] MEDS: SERTRALINE HCL 25 MG TABLET PO (09:23)
[2024-08-03] MEDS: MEASLES,MUMPS,RUBELLA VACCINE 0.5 ML VIAL SUB-Q (10:34)
[2024-08-03] MEDS: medroxyPROGESTERone ACETATE IM 150 MG/ML SYR IM (10:36)
--- NOTE | 2024-08-03 11:07 | PC.NURSE ---
Patient viewed the discharge video Mother & Baby Care, The First Two Weeks . Patient was given the opportunity and encouraged to ask questions. Patient verbalized understanding of information shared and has been given the mother/baby guide for home reference.
[2024-08-05 11:25] VITALS: BP 128/83; PULSE 78; RESP 18; TEMP 36.7; O2SAT 100
== END 2024-08-03 11:50 | disposition home or self-care (01) | DRG 560 ==
LOC: ANHLDR 22:03 → ANHOB2 08-02 00:23
PROVIDERS: Admitting Provider Obstetrics & Gynecology Gynecology; Visit Provider Obstetrics & Gynecology Gynecology
DX: O77.0 Labor and delivery complicated by meconium in amniotic fluid (principal); O70.0 First degree perineal laceration during delivery; Z37.0 Single live birth; Z3A.39 39 weeks gestation of pregnancy; O71.82 Other specified trauma to perineum and vulva
CPT/HCPCS: 36415; 85014; 85018; 85025; 86592; 86593; 86703; 86850; 86900; 86901; 90710; A9270; G0432; J1050; J2405; J2590; J2795; J7120

== ENCOUNTER 2024-09-26 08:31 | Emergency (ER) | payer OTHER, SELFPAY ==
--- NOTE | 2024-09-26 08:36 | ED_ITS ---
HPI - URI/Sore Throat General Chief Complaint: Upper Respiratory Infection Stated Complaint: sore throat Time Seen by Provider: 09/26/24 08:34 History of Present Illness HPI Narrative: 24 y/o female presented for c/o sore throat x2 weeks. Endorses painful swallow, hoarse voice, and feels like she cannot breathe at times worse at night. Has not taken anything for symptoms but is drinking hot tea. Exposure to strep. Related Data Home Medications ?Medication ?Instructions ?Recorded ?Confirmed ?Last Taken ?Type vitamin with calcium 1 tablet PO DAILY 07/29/24 08/01/24 08/01/24 10:56 History no.72-iron 27 mg-folic acid 1 mg tablet (WesTab Plus) sertraline 25 mg tablet 25 mg PO DAILY 07/29/24 08/01/24 07/31/24 21:00 History Allergies Allergy/AdvReac Type Severity Reaction Status Date / Time No Known Allergies Allergy Verified 09/26/24 08:37 Review of Systems Review of Systems: per HPI [facility] Family History Family History (Updated 08/01/24 @ 11:40 by Mary Escobedo RN) Other No pertinent family history in first degree relatives Social History Social History Smoking status: Never smoker Second hand tobacco smoke exposure: No Substance use: never Do You Feel Safe in your Home?: Yes Lack of Transportation: No Lack of Food: Never True Current Housing: I Have Housing Concerned About Future Housing: No Difficulty Paying Gas/Electric Bills: No Difficulty Paying for Meds: No Currently Unemployed: YES Education: Grade School Difficulty w/ Childcare or Family Care: No Spiritual care concerns: No Exam Narrative: GENERAL: well-appearing, no acute distress. EYES: conjunctivae clear ENT: Mucous membranes moist. TM pearly quintero with normal light reflex bilaterally; no tragal tenderness. Oropharynx not erythematous without lesions. Tonsils not enlarged and without exudate. No drooling, no hoarseness, no trismus, uvula midline. No tripod positioning, hot potato voice, or soft palate swelling. NECK: Supple. No lymphadenopathy CHEST: Clear to auscultation, breath sounds equal. No respiratory distress, speaks in full sentences. HEART: Regular rate and rhythm. No murmur heard. SKIN: Warm, dry, no rash. NEURO: Alert and oriented x3. Course Course Emergency Course: Patient is aware of diagnosis, understands and agrees to treatment plan. Anticipatory guidance given. Patient agrees to follow-up as directed and is nayeli re of reasons to seek care at the emergency department. Portions of this record may have been created with voice recognition software Level of Care: Express Care Visit Vital Signs Vital signs: Vital Signs Temperature 98.0 F 09/26/24 08:37 Pulse Rate 80 09/26/24 08:37 Respiratory Rate 16 09/26/24 08:37 Blood Pressure 128/79 09/26/24 08:37 Pulse Oximetry 100 09/26/24 08:37 Oxygen Delivery Room Air 09/26/24 08:37 Temperature 98.0 F 09/26/24 08:37 Pulse Rate 80 09/26/24 08:37 Respiratory Rate 16 09/26/24 08:37 Blood Pressure 128/79 09/26/24 08:37 Pulse Oximetry 100 09/26/24 08:37 Oxygen Delivery Room Air 09/26/24 08:37 MDM - URI/Sore Throat MDM Narrative Medical decision making narrative: neg strep result reviewed with pt. Advise supportive treatments. Patient is appropriate for outpatient treatment and follow-up. Differential Diagnosis Differential diagnosis: Likely upper respiratory infection, viral infection and pharyngitis Lab Data Labs: Lab Results 09/26/24 Range/Units 08:43 POC Grp A Strep Screen Negative (Negative) Discharge Plan Discharge Clinical Impression: Upper respiratory infection Patient Disposition: Home Condition: Stable Instructions: Antibiotic Form, Allergies (ED) Additional Instructions: Rapid strep swab was negative today You will be notified in a few days if the culture comes back positive for strep, and appropriate antibiotics will be called in at that time. if symptoms are due to a viral illness, it is not treated with antibiotics. Viral symptoms can be present for up to 10-14 days. Recommendations: Flonase spray and Zyrtec for sinus congestion Tylenol every 8 hours as needed for pain/fever Soft foods, cool liquids, warm tea. Gargle with warm saltwater twice a day. Chloraseptic spray and throat lozenges. Rest and stay hydrated. --Follow up with your PCP --Go to the ER immediately if you cannot swallow your saliva, trouble breathing/wheezing, throat swelling, pain is persistent and severe Patient Language: Kazakh Prescriptions: No Action sertraline 25 mg tablet 25 mg PO DAILY WesTab Plus 27 mg iron- 1 mg tablet 1 tablet PO DAILY Follow-up/Referrals: UNKNOWN,DOCTOR [Primary Care Provider] - Time of Disposition: 08:47
[2024-09-26 08:37] VITALS: BP 128/79; PULSE 80; RESP 16; TEMP 36.7; O2SAT 100
[2024-09-26 08:44] LABS: EDSTREPNEGPOS1 Negative (Negative)
--- OUTSIDE RECORDS SUMMARY | 2024-09-30 16:35 | XMS_ITS | Data Portability ---
Author Organization [facility] [facility] , [facility] Address [address] [place] [address] Assessment No assessment recorded. Plan of Treatment Reminders Order Date Submit Date Provider Last Modified By Organization Details Last Modified Time Details Appointments None recorded. Lab test, urine 2023 024 [email or web address] [facility], [address] [place], [address], 13:06:13 Referral None recorded. Procedures None recorded. Surgeries None recorded. Imaging US, transvagina l 2023 024 WAYNE Not available 10:25:31 Medication Orders ondansetron 4 mg disintegrat ing tablet 2023 [id number], [address], [place], [id number], 13:06:16 Patient TargetsNo targets recorded. Patient InstructionsNo instructions recorded. Reason for Referral None Reported. Results Created Date Observation Date Name Description Value Unit Range Abnormal Flag Note LastModifiedBy Organization Detail LastModifiedTime 01/23/2001/23/2024 pregn andrzej test, urine HCG positi ve Not Available [facility] [address] [place], [address], 01/23/2024 12:06:17 01/24/2001/23/2024 US, trans vagin al No observ ation record ed. [email or web address] [facility] [address], [place], [address], 01/24/2024 10:29:36 Result Notes None recorded. Problems Name Problem SNOMED Code Status Onset Date Resolution Date Notes Provider Name and Address Organization Details Recorded Time [id number] Active 024 Tramea Desi null, ID [facility] 4 10:06:07 Problem Notes None recorded. Procedures Surgical History Date Name Laterality Status Provider Name and Address Organization Details Recorded Time Date of Last Pap Smear completed [facility] 01/23/2024 12:39:22 procedure on wrist completed [facility] 01/23/2024 12:42:02 removal of silastic tubes from ear completed [facility] 01/23/2024 12:42:18 Imaging Results Imaging Date Name Status LastModified by Organization Details LastModified Time 01/23/2024 US, transvaginal completed [email or web address] [facility] [address], [place], [address], 01/24/2024 10:29:36 Procedure Notes None recorded. Medical [...] Available No t Available Sprintec (28) 0.25 mg-0.035 mg tablet TAKE 1 TABLET BY MOUTH EVERY DAY 01/22 completed Not Available Not Available Not Available cyclobenzap rine 5 mg tablet active Not Available Not Available Not Available M-Beth Plus 27 mg iron-1 mg tablet TAKE 1 TABLET BY MOUTH EVERY DAY active Not Available Not Available No t Available Vitals Date Recorded Body height Body mass index (BMI) Body weight Body temperature Systolic blood pressure Diastolic blood pressure Provider Name and Address Organization Details Last Updated DateTime 167.64 cm 25.8 kg/m2 99882.0 6 g 97.4 [degF] 124 mm[Hg] 72 mm[Hg] Angela Vasquez [employer] 12:05:39 Social History Question Answer Notes LastModified by [employer] Details LastModified Time Tobacco Smoking Status Never Smoker Angela Vasquez madhuri, [employer] 01/23/2024 12:41:49 What Is Your Level Of [...] Functional Status Question Answer Note LastModified by Organizat ion Details LastModified Time What is your [...] SNOMED-CT Code Diagnosis ICD10 Code Diagnosis Note [id number] BONIFACIO SABILLON NP [facility] h [address] [place] [address] 01/23/2024 11:54:32 01/23/2024 13:17:43 Missed period [id number] N92.6 Pt presents today for a confirmati [...] vitamins daily---To xoplasmosi s precaution s reviewed-- -[facility] Guide; What to expect on your maternity journey -- -S/S of SAB reviewed and when to seek care--BMI: 25.8 --Medicati ons Reviewed: PNV, sertaline, RTC 1 - - week for 1st OB, Labs, and Physical. Nausea and vomiting in [id number] O21.9 saying that the reglan isn't helping her and would like to try zofran. Health Concerns Section Related Observation LastModified by Organization Detai ls LastModified Time None Recorded Concern Status LastModified by Organization Details LastModified Time None Recorded Advance Directives Directive None Recorded Payers Encounter Date Sequence Insurance Name Policy Number Policy [place] Covered Member ID [place] Member ID Guarantor Name 01/23/2024 1 [facility] - DOS ON OR AFTER 20 (MEDICAID REPLACEMENT - HMO) Milly Francis [id number] Milly Francis Notes Date Note Type Note Provider Name and Address Organization Details Recorded Time 01/23/2024 text/html Confirmation VisitReported bypatient.obstetric s and gynecologyLMP: (10/31/2023); date positive test: (01/23/2024); flow is moderate; EDC (LMP): (08/06/24) BONIFACIO SABILLON NP [address] [place], [address], [facility] 01/23/2024 13:09:02 OBGyn Episode Ob Episode Information Episode Created Date Number of Fetuses Patient Bloodtype Patient rh Status Prepregnancy Weight lbs Domestic Partner Domestic Partner Phone Father Name Human Relations Professor Status 01/29/20 24 1 OPEN Fetus Data [...]
== END 2024-09-26 08:47 | disposition home or self-care (01) ==
LOC: EXPBETH 09-30 14:40
PROVIDERS: Emergency Provider Nurse Practitioner Family
DX: J06.9 Acute upper respiratory infection, unspecified (principal)
CPT/HCPCS: 87081; 87880; 99213; G0463

== ENCOUNTER 2025-02-18 11:52 | Emergency (ER) | payer OTHER, SELFPAY ==
[2025-02-18 12:01] VITALS: BP 134/88; PULSE 72; RESP 18; TEMP 36.8; O2SAT 100
--- NOTE | 2025-02-18 12:39 | ED.GENADULT ---
HPI - General Adult General Chief complaint: Dental/Oral Stated complaint: Tooth Pain/Ear Pain Source: patient Mode of arrival: ambulatory Limitations: no limitations History of Present Illness HPI narrative: Patient presents for evaluation of right lower dental pain. Symptom onset 2 weeks ago. She indicates she has an impacted tooth in the affected area. No fever, chills, nausea, vomiting. She rates her pain 8 out 10 in severity, described as throbbing. Ibuprofen did not help. Tylenol helped minimally. Pain has now migrated into the right ear. She has a history of recurrent ear infections. Related Data Home Medications ?Medication ?Instructions ?Recorded ?Confirmed ?Last Taken ?Type hydroxyzine pamoate 25 mg capsule mg 02/18/25 Unknown History medroxyprogesterone 150 mg/mL mg IM 02/18/25 Unknown History intramuscular syringe sertraline 50 mg tablet mg 02/18/25 Unknown History Allergies Allergy/AdvReac Type Severity Reaction Status Date / Time No Known Allergies Allergy Verified 02/18/25 12:01 Review of Systems Review of Systems: CONSTITUTIONAL: Denies fever, chills, or sweats. EYES: Denies visual changes, redness, or discharge. ENT: Reports right lower dental pain. Reports right ear pain. Denies rhinorrhea, congestion, or sore throat CARDIOVASCULAR: Denies chest pain, palpitations, or edema. RESPIRATORY: Denies cough or dyspnea. GASTROINTESTINAL: Denies abdominal pain, nausea, vomiting, or diarrhea. GENITOURINARY: Denies dysuria or hematuria. SKIN: Denies rash or itching. MUSCULOSKELETAL: Denies back pain, joint pain, or myalgia. NEUROLOGIC: Denies headache, numbness, dizziness, or weakness. PSYCHIATRIC: Denies anxiety or depression. [facility] Past Medical History Medical History Anxiety Surgical History Surgical History No pertinent past surgical history Family History Family History Mother Family history non-contributory Other No pertinent family history in first degree relatives Social History Social History Smoking status: Never smoker Second hand tobacco smoke exposure: No Substance use: never Do You Feel Safe in your Home?: Yes Lack of Transportation: No Lack of Food: Never True Current Housing: I Have Housing Concerned About Future Housing: No Difficulty Paying Gas/Electric Bills: No Difficulty Paying for Meds: No Currently Unemployed: YES Education: Grade School Difficulty w/ Childcare or Family Care: No Spiritual care concerns: No Exam Narrative: GENERAL: WELL-APPEARING, WELL-NOURISHED, AND IN NO ACUTE DISTRESS. HEAD: NORMOCEPHALIC, ATRAUMATIC. EYES: PERRLA AND EOMI. ENT: RIGHT LOWER WISDOM TOOTH IS IMPACTED. THERE IS TENDERNESS IN THE AFFECTED AREA. NO VISIBLE OR PALPABLE ABSCESS. NARES CLEAR, NO RHINORRHEA OR EPISTAXIS. MUCOUS MEMBRANES MOIST. OROPHARYNX WITHOUT TONSILLAR HYPERTROPHY EXUDATE OR OTHER LESIONS. BILATERAL TMS HAVE SCARRING AND MILD ERYTHEMA NECK: SUPPLE. NO ADENOPATHY OR MASSES. NO CAROTID BRUITS OR JVD CHEST: CLEAR TO AUSCULTATION. NO RESPIRATORY DISTRESS. NO WHEEZES RALES OR RHONCHI HEART: REGULAR RATE AND RHYTHM. NO MURMUR HEARD. NORMAL PERIPHERAL PULSES. ABDOMEN: SOFT, NONTENDER, NONDISTENDED, NORMAL ACTIVE BOWEL SOUNDS. EXTREMITIES: NORMAL RANGE OF MOTION. NO EDEMA. SKIN: WARM, DRY, NO RASH. NEURO: NO FOCAL DEFICITS. ALERT AND ORIENTED X3. PSYCH: NORMAL MOOD AND AFFECT. Course Course Emergency Course: This is a 24-year-old female who presented for evaluation of right lower dental pain. She has evidence of an impacted tooth. Will discharge with Augmentin and tramadol. Follow-up with dentist and primary care. Go to the ER for worsening symptoms. Patient in agreement plan of care. Level of Care: Express Care Visit Vital Signs Vital signs: Vital Signs Temperature 36.8 C 02/18/25 12:01 Pulse Rate 72 02/18/25 12:01 Respiratory Rate 18 02/18/25 12:01 Blood Pressure 134/88 02/18/25 12:01 Pulse Oximetry 100 02/18/25 12:01 Oxygen Delivery Room Air 02/18/25 12:01 Temperature 36.8 C 02/18/25 12:01 Pulse Rate 72 02/18/25 12:01 Respiratory Rate 18 02/18/25 12:01 Blood Pressure 134/88 02/18/25 12:01 Pulse Oximetry 100 02/18/25 12:01 Oxygen Delivery Room Air 02/18/25 12:01 Medical Decision Making Vital Signs Vital Signs: Vital Signs Temperature 36.8 C 02/18/25 12:01 Pulse Rate 72 02/18/25 12:01 Respiratory Rate 18 02/18/25 12:01 Blood Pressure 134/88 02/18/25 12:01 Pulse Oximetry 100 02/18/25 12:01 Oxygen Delivery Room Air 02/18/25 12:01 Temperature 36.8 C 02/18/25 12:01 Pulse Rate 72 02/18/25 12:01 Respiratory Rate 18 02/18/25 12:01 Blood Pressure 134/88 02/18/25 12:01 Pulse Oximetry 100 02/18/25 12:01 Oxygen Delivery Room Air 02/18/25 12:01 Discharge Plan Discharge Clinical Impression: Impacted tooth Patient Disposition: Home Condition: Stable Instructions: Antibiotic Form, Toothache (ED) Patient Language: Salvadorean Prescriptions: New amoxicillin-pot clavulanate 875-125 mg tablet 1 tablet PO Q12H Qty: 20 0RF tramadol 50 mg tablet 50 mg PO Q8H PRN (Reason: pain) Qty: 15 0RF No Action sertraline 50 mg tablet hydroxyzine pamoate 25 mg capsule medroxyprogesterone 150 mg/mL syringe IM Follow-up/Referrals: Romel Birch MD [Physician, Family Practice] Time of Disposition: 12:38
--- OUTSIDE RECORDS SUMMARY | 2025-02-18 13:33 | XMS_ITS | Clinical Summary ---
Author Organization [address] Address [address] [place] [address] Care Team Providers Care Gamb Cutter Name Role Phone Rosales Mane MD Primary Care Provider [phone] Allergies No known active allergies Medications sertraline (ZOLOFT) 50 mg tabletIndications : depression Take 1 tablet (50 mg total) by mouth daily 30 tablet 2 5 Active medroxyPROGESTERo ne (DEPO-PROVERA) 150 mg/mL injectionIndicati ons:Encounter for initial prescription of injectable contraceptive Inject 1 mL (150 mg total) into the muscle as instructed every 3 (three) months 1 mL 3 5 Active hydrOXYzine (VISTARIL) 25 mg capsuleIndication s:Anxiety Take 1 capsule (25 mg total) by mouth 3 (three) times a day as needed for anxiety 30 capsule 1 5 Active Active Problems Problem Noted Date Diagnosed Date depression 12/23/2024 Assessment & Plan (01/09/2025 2:54 PM CDT): Patient w/ chronic and post- depression, recent dose increase of sertraline to 50 mg on 12/23 (approx. 2 weeks ago). Reports no significant improvement in symptoms. Denies having SI/HI. Does not seem to be danger to self or child. Does have poor sleep at time, which may be contributing to symptoms. Plan: - continue sertraline to 50 mg daily - resources provided - Psychiatry referral - OTC melatonin Assessment & Plan (12/23/2024 11:31 AM CDT): Patient w/ chronic and post- depression, started on sertraline 25 mg following delivery. Has been taking medication for 5 months with occasional missed doses. Reports mild benefit and improvement in symptoms. Patient requesting increased dose due to incomplete remission of symptoms. Plan: - Ordering CMP, TSH, B12, and folate to evaluate organic causes of depression - Increasing sertraline to 50 mg daily - Follow up in 3 months to evaluate medication effect Orders: sertraline (ZOLOFT) 50 mg tablet; Take 1 tablet (50 mg total) by mouth daily Comprehensive metabolic panel; Future Thyroid Function [place]; Future Folate; Future Vitamin B12; Future Contraception management 12/23/2024 Assessment & Plan (12/23/2024 11:31 AM CDT): 24 y/o female previously on depo provera prior to . Patient was satisfied with it and denied adverse effects. Patient requesting restarting depo provera. Last dose was in July, following delivery. Plan: - Restarting depo provera q3 months. Orders: medroxyPROGESTERone (DEPO-PROVERA) 150 mg/mL injection; Inject 1 mL (150 mg total) into the muscle as instructed every 3 (three) months Encounters Date Type Department Care Team Description 01/09/2025 1:30 PM CDT Telemedicine [facility] at [address] [phone] Yana Huynh MD depression (Primary Dx); Anxiety 01/09/2025 Orders Only [facility] at [address] [address] Yana Huynh MD depression (Primary Dx); Anxiety 01/09/2025 Nurse Triage [facility] at [address] [address] Rosales Mane MD 01/09/2025 Telephone [facility] at [address] [address] Rosales Mane MD Referral Request 12/30/2024 Telephone [facility] at [address] [phone] Rosales Mane MD 12/26/2024 1:15 PM CDT Clinical Support [facility] at [address] [address] Encounter for contraceptive management, unspecified type (Primary Dx) 12/24/2024 Telephone [facility] at [address] [phone] Rosales Mane MD Medical Question/Miscellaneous 12/23/2024 10:00 AM CDT Office Visit [facility] at [address] [phone] Rosales Mane MD Encounter for initial prescription of injectable contraceptive (Primary Dx); depression from Last 3 Months Immunizations Immunization Administration Dates Next Due DTaP 12/08/2005, 3,06/18/2002,03/22,2001 HPV, Quadrivalent 09/25/2014,03/12/2014 Hep A, Ped Unspecified 11/30/2006,12/09/2004 Hep B, Adolescent or Pediatric 06/18/2002,2001,2001 HiB 03/31/2003, 3,03/22/2002,11/13 IPV 12/08/2005, 3,03/22/2002,11/13 Influenza, Live, Intranasal, Quadrivalent 03/12/2014 MMR 08/03/2024,12/08/2005,09/16/2002 Meningococcal MCV4, Unspecified 03/12/2014 Meningococcal MCV4P (Menactra) 03/12/2014 Pneumococcal Conjugate 7-Valent 03/31/2003,03/22,2001 Tdap 03/12/2014 Varicella 11/30/2006,09/16/2002 Social History Tobacco Use Types Packs/Day Years Used Date Smoking Tobacco: Never Passive Smoke Exposure: Never Smokeless Tobacco: Never Tobacco Cessation:Counseling Given: Not Answered AUDIT-C Answer Date Recorded Q1: How often do you have a drink containing alcohol? Never 01/09/2025 Q2: How many drinks containi ng alcohol do you have on a typical day when you are drinking? Patient does not drink Q3: How often do you have si x or more drinks on one occasion? Never 01/09/2025 PHQ-2 Answer Date Recorded PHQ-2 Total Score (If total score is 3 or more points, staff should administer the PHQ-9) 2 01/09/2025 PHQ-9 Answer Date Recorded PHQ-9 Total Score 9 01/09/2025 Personal Safety Answer Date Recorded Have you ever been in or are you currently in a harmful physical or emotional relationship or is someone making you feel afraid or unsafe? 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 Respiratory Rate 18 12/23/2024 9:59 AM CDT Oxygen Saturation 98% 12/23/2024 9:59 AM CDT Inhaled Oxygen Concentration - - Weight 83.9 kg (185 lb) 01/09/2025 1:22 PM CDT p t stated Height 167.6 cm (5' 6) 12/23/2024 9:59 AM CDT Body Mass Index 29.86 12/23/2024 9:59 AM CDT Plan of Treatment Health Maintenance Due Date Last Done Comments Chlamydia and Gonorrhea (GC/ CT) Screening 2001 Meningococcal B Vaccine (1 o f 2 - Standard) 2017 Regular Well Visit/Exam 18-64 09/14/2019 DTaP/Tdap/Td Vaccine (7 - Td or Tdap) 03/12/2024 03/12/2014, 12/08/2005, 03/31/2003, Additional history exists Cervical Cancer Screening 01/03/2025 01/04/2024 Influenza Vaccine (#1) 2025 03/12/2014 Depression Screening 01/09/2026 01/09/2025, 01/10/20 Hepatitis B Screening Completed 06/18/2002 , 2001, 2001 Pneumococcal vaccine <65 Completed 003, 03/22/2002, 2001 Varicella Vaccines Completed 11/30/2006, 09/16/2002 HPV Vaccines Completed 09/25/2014, 03/12/2014 Hepatitis C Screening Completed 03/21/2024 Procedures Procedure Name Priority Date/Time Associated Diagnosis Comments POCT HCG, URINE Routine 12/26/2024 1:15 PM CDT Encounter for contraceptive management, unspecified type HEPATITIS C SCREENING Routine 03/21/2024 PAP SMEAR WITH HPV Routine 01/04/2024 from Last 3 Months or Most Recently Relevant to Health Maintenance Results * POCT hCG, urine (12/26/2024 1:15 PM CDT) HCG, ur, POC Negative Negative Lot Number [id number] QC Backgroud Clear Acceptable QC Control Line Acceptable Urine 12/26/2024 1:15 PM CDT Juanita Rose MD POINT OF CARE TEST ORDERA BLES Final Result * HEPATITIS C SCREENING (03/21/2024) SCRIBED HCV ab NON-REACTI VE EXTERNAL LAB 03/21/2024 Mami Provider HEALTH MAINTENANCE Final Result EXTERNAL LAB * PAP SMEAR WITH HPV (01/04/2024) Scribed Pap Smear w/HPV Normal 01/04/2024 us Historical Provider HEALTH MAINTENANCE Final Result from Last 3 Months or Most Recently Relevant to Health Maintenance Insurance [facility] Care Teams Gamb Cutter Relationship Specialty Start Date End Date Rosales Mane MD PCP - General Family Medicine 12/23/24
== END 2025-02-18 12:42 | disposition home or self-care (01) ==
PROVIDERS: Emergency Provider Nurse Practitioner
DX: K01.1 Impacted teeth (principal); F41.9 Anxiety disorder, unspecified
CPT/HCPCS: 99213; G0463